=== PATIENT | female | born 1975 | race Caucasian/White ===

== ENCOUNTER 2018-12-05 16:07 | Observation (INO) ==
--- NOTE | 2018-12-05 16:37 | Emergency Department Note ---
Disposition Clinical Impression: Chronic abdominal pain Anemia Qualifiers: Anemia type: unspecified type Qualified Code(s): D64.9 - Anemia, unspecified Hypothyroidism Qualifiers: Hypothyroidism type: unspecified Qualified Code(s): E03.9 - Hypothyroidism, unspecified Disposition: Admitted As Inpatient Condition: Fair Referrals: Brie Thapa MD [Primary Care Provider] - Time of Disposition: 20:47 General Adult HPI - General Chief complaint: ED Chest Pain Stated complaint: CP since Time Seen by Provider: 12/05/18 16:18 Source: patient - History of Present Illness Pain Scale: 10 - Related Data Home Medications Medication Instructions Recorded Confirmed Aspirin [Lo-Dose Aspirin EC] 81 mg PO DAILY 03/19/16 01/21/18 Atorvastatin Calcium [Lipitor] 80 mg PO HS 03/19/16 01/21/18 Cyclobenzaprine [Flexeril] 10 mg PO TID PRN 03/19/16 01/21/18 Gabapentin [Neurontin] 800 mg PO BID 03/19/16 01/21/18 LORazepam [Ativan] 2 mg PO BID 03/19/16 01/21/18 metFORMIN [Glucophage] 1,000 mg PO BIDWM 03/19/16 01/21/18 Citalopram [CeleXA] 20 mg PO DAILY 01/21/18 01/21/18 Levothyroxine Sodium [Synthroid] 200 mcg PO DAILY 01/21/18 01/21/18 Losartan/Hydrochlorothiazide 1 tab PO DAILY 01/21/18 01/21/18 [Losartan-Hctz 100-25 mg Tab] Previous Rx's Medication Instructions Recorded Lurasidone [Latuda] 40 mg PO DAILY #30 tablet 03/20/16 Naproxen [Naprosyn] 500 mg PO BID #20 tablet 04/07/18 Ondansetron ODT [Zofran ODT] 4 mg SL Q6HR PRN #15 tab.rapdis 04/22/18 Gabapentin [Neurontin] 800 mg PO BID #14 tablet 04/29/18 Polyethylene Glycol 3350 [MiraLAX] 17 gm PO DAILY #7 powd.pack 08/11/18 Allergies Allergy/AdvReac Type Severity Reaction Status Date / Time Penicillins Allergy Swelling Verified 12/05/18 19:47 of Lip/Tongue/Throat Past Medical History - Past Medical History Medical history: Reports: CHF, CVA, diabetes, fibromyalgia, hyperlipidemia, hypertension, renal disease, thyroid disease Surgical history: Reports: cholecystectomy, other (D&C after a stillbirth) Psychiatric history: Reports: anxiety, bipolar, depression, previous psychiatric hospitalization 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 history - Social History Smoking Status: Current every day smoker Smokeless Tobacco Status: No Alcohol use: Reports: occasionally Drug use: Reports: none Physical Exam - General General appearance: alert Course Vital Signs Temperature 98.1 F 12/05/18 16:14 Pulse Rate 120 12/05/18 16:14 Respiratory Rate 20 12/05/18 16:14 Blood Pressure 192/122 12/05/18 16:14 O2 Sat by Pulse Oximetry 96 12/05/18 16:14 Temperature 98.1 F 12/05/18 16:23 Pulse Rate 74 12/05/18 19:49 Respiratory Rate 20 12/05/18 19:49 Blood Pressure 153/95 12/05/18 19:49 O2 Sat by Pulse Oximetry 98 12/05/18 19:53 Oxygen Delivery Oxygen Delivery Room Air Medical Decision Making - Lab Data Result diagrams: 12/05/18 17:15 12/05/18 17:15 Lab Results 12/05/18 12/05/18 12/05/18 Range/Units 16:59 16:59 16:59 WBC (4.3-11.1) K/mcL RBC (3.82-4.97) M/mcL Hgb (11.5-15.4) g/dL Hct (35.3-44.9) % MCV (83.0-100.0) fL MCH (28.0-33.3) pg MCHC (31.6-35.5) g/dL RDW (11.5-14.5) % Plt Count (140-400) K/mcL MPV (9.4-12.4) fL Immature Gran % (0-4) % Seg Neutrophils % % Lymphocytes % % Monocytes % % Eosinophils % % Basophils % % Neutrophils # (1.6-8.9) K/mcL Lymphocytes # (0.6-4.6) K/mcL Monocytes # (0.0-1.3) K/mcL Eosinophils # (0.0-0.6) K/mcL Basophils # (0.0-0.2) K/mcL Sodium (136-145) mEq/L Potassium (3.5-5.1) mEq/L Chloride (98-107) mEq/L Carbon Dioxide (23-29) mEq/L BUN (6-20) mg/dL Creatinine (0.60-1.20) mg/dL Est GFR ( Amer) (> 60) Est GFR (Non-Af Amer) (> 60) BUN/Creatinine Ratio (6-26) Glucose (70-105) mg/dL Calculated Osmolality (280-300) Calcium (8.6-10.3) mg/dL Total Bilirubin (0.3-1.0) mg/dL Direct Bilirubin (0.0-0.2) mg/dL Indirect Bilirubin (0.0-1.2) mg/dL AST (13-39) Units/L ALT (7-52) Units/L Alkaline Phosphatase (34-104) Units/L Troponin I (< 0.04) ng/mL Serum Total Protein (6.4-8.9) g/dL Albumin (3.5-5.7) g/dL Globulin (2.4-3.5) g/dL Albumin/Globulin Ratio (1.1-2.2) Lipase (11-82) Units/L TSH (0.340-5.600) mcIU/mL Urine Color Yellow (Yellow) Urine Clarity Slightly Hazy (Clear) Urine pH 5.5 (5.0-8.0) pH Units Ur Specific [place] 1.011 (1.010-1.025) Urine Protein Negative (Neg-Trace) mg/dL Urine Glucose (UA) Normal (Normal) mg/dL Urine Ketones Negative (Negative) mg/dL Urine Blood Negative (Negative) Urine Nitrite Negative (Negative) Urine Bilirubin Negative (Negative) Urine Urobilinogen Normal (Normal) mg/dL Ur Leukocyte Esterase Negative (Negative) Urine Test Negative (Negative) Stool Occult Blood (Negative) Salicylates (15.0-30.0) mg/dL Urine Opiates Screen Negative (Vphgjg=274) ng/mL Acetaminophen (10-20) mcg/mL Ur Barbiturates Screen Negative (Nwkmso=584) ng/mL Ur Phencyclidine Scrn Negative (Cutoff=25) ng/mL Ur Amphetamines Screen Negative (Rjbwkw=2585) ng/mL U Benzodiazepines Scrn Negative (Sqgpzb=582) ng/mL Urine Cocaine Screen Negative (Cutoff= 300) ng/mL U Marijuana (THC) Screen Negative (Cutoff = 50) ng/mL Ur Drug Screen Interp See Below Ethyl Alcohol (Less than 10) mg/dL 12/05/18 12/05/18 12/05/18 Range/Units 17:15 17:15 17:15 WBC 7.9 (4.3-11.1) K/mcL RBC 3.20 L (3.82-4.97) M/mcL Hgb 9.0 L (11.5-15.4) g/dL Hct 28.9 L (35.3-44.9) % MCV 90.3 (83.0-100.0) fL MCH 28.1 (28.0-33.3) pg MCHC 31.1 L (31.6-35.5) g/dL RDW 16.0 H (11.5-14.5) % Plt Count 325 (140-400) K/mcL MPV 9.6 (9.4-12.4) fL Immature Gran % 0.4 (0-4) % Seg Neutrophils % 55.1 % Lymphocytes % 37.3 % Monocytes % 5.0 % Eosinophils % 1.8 % Basophils % 0.4 % Neutrophils # 4.4 (1.6-8.9) K/mcL Lymphocytes # 3.0 (0.6-4.6) K/mcL Monocytes # 0.4 (0.0-1.3) K/mcL Eosinophils # 0.1 (0.0-0.6) K/mcL Basophils # 0.0 (0.0-0.2) K/mcL Sodium 135 L (136-145) mEq/L Potassium 3.9 (3.5-5.1) mEq/L Chloride 103 (98-107) mEq/L Carbon Dioxide 25 (23-29) mEq/L BUN 12 (6-20) mg/dL Creatinine 0.68 (0.60-1.20) mg/dL Est GFR ( Amer) > 60 (> 60) Est GFR (Non-Af Amer) > 60 (> 60) BUN/Creatinine Ratio 18 (6-26) Glucose 135 H (70-105) mg/dL Calculated Osmolality 282 (280-300) Calcium 9.3 (8.6-10.3) mg/dL Total Bilirubin 0.3 (0.3-1.0) mg/dL Direct Bilirubin 0.0 (0.0-0.2) mg/dL Indirect Bilirubin 0.3 (0.0-1.2) mg/dL AST 11 L (13-39) Units/L ALT 12 (7-52) Units/L Alkaline Phosphatase 53 (34-104) Units/L Troponin I < 0.03 (< 0.04) ng/mL Serum Total Protein 7.2 (6.4-8.9) g/dL Albumin 3.7 (3.5-5.7) g/dL Globulin 3.5 (2.4-3.5) g/dL Albumin/Globulin Ratio 1.1 (1.1-2.2) Lipase 28 (11-82) Units/L TSH 152.170 H (0.340-5.600) mcIU/mL Urine Color (Yellow) Urine Clarity (Clear) Urine pH (5.0-8.0) pH Units Ur Specific [place] (1.010-1.025) Urine Protein (Neg-Trace) mg/dL Urine Glucose (UA) (Normal) mg/dL Urine Ketones (Negative) mg/dL Urine Blood (Negative) Urine Nitrite (Negative) Urine Bilirubin (Negative) Urine Urobilinogen (Normal) mg/dL Ur Leukocyte Esterase (Negative) Urine Test (Negative) Stool Occult Blood (Negative) Salicylates < 2.5 L (15.0-30.0) mg/dL Urine Opiates Screen (Ppauzb=263) ng/mL Acetaminophen < 10 L (10-20) mcg/mL Ur Barbiturates Screen (Wpbkhr=280) ng/mL Ur Phencyclidine Scrn (Cutoff=25) ng/mL Ur Amphetamines Screen (Qwayfg=1019) ng/mL U Benzodiazepines Scrn (Ljjcif=141) ng/mL Urine Cocaine Screen (Cutoff= 300) ng/mL U Marijuana (THC) Screen (Cutoff = 50) ng/mL Ur Drug Screen Interp Ethyl Alcohol < 10 (Less than 10) mg/dL 12/05/18 Range/Units 18:18 WBC (4.3-11.1) K/mcL RBC (3.82-4.97) M/mcL Hgb (11.5-15.4) g/dL Hct (35.3-44.9) % MCV (83.0-100.0) fL MCH (28.0-33.3) pg MCHC (31.6-35.5) g/dL RDW (11.5-14.5) % Plt Count (140-400) K/mcL MPV (9.4-12.4) fL Immature Gran % (0-4) % Seg Neutrophils % % Lymphocytes % % Monocytes % % Eosinophils % % Basophils % % Neutrophils # (1.6-8.9) K/mcL Lymphocytes # (0.6-4.6) K/mcL Monocytes # (0.0-1.3) K/mcL Eosinophils # (0.0-0.6) K/mcL Basophils # (0.0-0.2) K/mcL Sodium (136-145) mEq/L Potassium (3.5-5.1) mEq/L Chloride (98-107) mEq/L Carbon Dioxide (23-29) mEq/L BUN (6-20) mg/dL Creatinine (0.60-1.20) mg/dL Est GFR ( Amer) (> 60) Est GFR (Non-Af Amer) (> 60) BUN/Creatinine Ratio (6-26) Glucose (70-105) mg/dL Calculated Osmolality (280-300) Calcium (8.6-10.3) mg/dL Total Bilirubin (0.3-1.0) mg/dL Direct Bilirubin (0.0-0.2) mg/dL Indirect Bilirubin (0.0-1.2) mg/dL AST (13-39) Units/L ALT (7-52) Units/L Alkaline Phosphatase (34-104) Units/L Troponin I (< 0.04) ng/mL Serum Total Protein (6.4-8.9) g/dL Albumin (3.5-5.7) g/dL Globulin (2.4-3.5) g/dL Albumin/Globulin Ratio (1.1-2.2) Lipase (11-82) Units/L TSH (0.340-5.600) mcIU/mL Urine Color (Yellow) Urine Clarity (Clear) Urine pH (5.0-8.0) pH Units Ur Specific [place] (1.010-1.025) Urine Protein (Neg-Trace) mg/dL Urine Glucose (UA) (Normal) mg/dL Urine Ketones (Negative) mg/dL Urine Blood (Negative) Urine Nitrite (Negative) Urine Bilirubin (Negative) Urine Urobilinogen (Normal) mg/dL Ur Leukocyte Esterase (Negative) Urine Test (Negative) Stool Occult Blood Negative (Negative) Salicylates (15.0-30.0) mg/dL Urine Opiates Screen (Oihiby=046) ng/mL Acetaminophen (10-20) mcg/mL Ur Barbiturates Screen (Kdbznd=120) ng/mL Ur Phencyclidine Scrn (Cutoff=25) ng/mL Ur Amphetamines Screen (Wqpolc=8762) ng/mL U Benzodiazepines Scrn (Uxkfpd=288) ng/mL Urine Cocaine Screen (Cutoff= 300) ng/mL U Marijuana (THC) Screen (Cutoff = 50) ng/mL Ur Drug Screen Interp Ethyl Alcohol (Less than 10) mg/dL Attestation Statement - Attestation Attestation: I examined this patient and my medical decision-making was reviewed with the Resident Physician. I agree with the documented findings, disposition and treatment plan as described except to the extent set forth below. Patient to the ED complaining of chest and upper abdominal pain. History of the same for several months. Patient is having suicidal thoughts secondary to the pain. She is in no distress on exam. Upper abdominal tenderness without guarding. Plan. Medical clearance with cardiac workup. One a evaluation when patient is medically cleared. Patient signed chest pain. TSH is over 100. We will admit for medical management as the patient cannot be medically cleared at this time. [place] slip on chart. Patient accepted to the medicine service. EKG was reviewed with the resident. No acute ischemic changes. Unchanged from her EKG in December 2017.
--- NOTE | 2018-12-05 17:10 | Emergency Department Note ---
Disposition Clinical Impression: Chronic abdominal pain Anemia Qualifiers: Anemia type: unspecified type Qualified Code(s): D64.9 - Anemia, unspecified Hypothyroidism Qualifiers: Hypothyroidism type: unspecified Qualified Code(s): E03.9 - Hypothyroidism, unspecified Disposition: Admitted As Inpatient Condition: Fair Time of Disposition: 20:00 Chest Pain HPI - General Chief Complaint: ED Chest Pain Stated Complaint: CP since Time Seen by Provider: 12/05/18 16:18 Source: patient Mode of arrival: ambulatory Limitations: no limitations Vital Signs Reviewed: Yes Nursing Notes Reviewed: Yes - History of Present Illness HPI Narrative: 43-year-old female with history of hypertension, fibromyalgia, psychiatric disease, arrives to the emergency department with complaint of roughly 4 months of left-sided chest and upper abdominal discomfort. The patient has had multiple evaluations for this complaint including endoscopy. The patient states that she has been taking medications and is not getting any better. She states it is worse with exertion and worse when she stands up. She feels as though it started on the right side has now migrated to the left side. The patient has no other associated symptoms of her chest pain to include shortness of breath, hemoptysis, or any other associated with with that. Her abdominal pain is sharp in nature as well. She has associated nausea without vomiting. She admits to intermittent episodes of diarrhea. Patient denies any melena or hematochezia associated with it. The patient states that she is now suicidal because she does not know what else to do with this pain. Patient denies any plan. No other acute complaints at this time. Severity scale (1-10): 10 - Related Data Home Medications Medication Instructions Recorded Confirmed Aspirin [Lo-Dose Aspirin EC] 81 mg PO DAILY 03/19/16 01/21/18 Atorvastatin Calcium [Lipitor] 80 mg PO HS 03/19/16 01/21/18 Cyclobenzaprine [Flexeril] 10 mg PO TID PRN 03/19/16 01/21/18 Gabapentin [Neurontin] 800 mg PO BID 03/19/16 01/21/18 LORazepam [Ativan] 2 mg PO BID 03/19/16 01/21/18 metFORMIN [Glucophage] 1,000 mg PO BIDWM 03/19/16 01/21/18 Citalopram [CeleXA] 20 mg PO DAILY 01/21/18 01/21/18 Levothyroxine Sodium [Synthroid] 200 mcg PO DAILY 01/21/18 01/21/18 Losartan/Hydrochlorothiazide 1 tab PO DAILY 01/21/18 01/21/18 [Losartan-Hctz 100-25 mg Tab] Previous Rx's Medication Instructions Recorded Lurasidone [Latuda] 40 mg PO DAILY #30 tablet 03/20/16 Naproxen [Naprosyn] 500 mg PO BID #20 tablet 04/07/18 Ondansetron ODT [Zofran ODT] 4 mg SL Q6HR PRN #15 tab.rapdis 04/22/18 Gabapentin [Neurontin] 800 mg PO BID #14 tablet 04/29/18 Polyethylene Glycol 3350 [MiraLAX] 17 gm PO DAILY #7 powd.pack 08/11/18 Allergies Allergy/AdvReac Type Severity Reaction Status Date / Time Penicillins Allergy Swelling Verified 12/05/18 19:47 of Lip/Tongue/Throat All systems ED: reviewed and negative except as stated. Constitutional: Reports: weakness. Denies: fever, chills ENT ED: Denies: dysphagia Cardiovascular: Reports: chest pain, dyspnea on exertion. Denies: edema, syncope Respiratory: Reports: dyspnea. Denies: cough, sputum production Gastrointestinal: Reports: abdominal pain, nausea. 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 - Social History Smoking Status: Current every day smoker Alcohol use: Reports: occasionally Drug use: Reports: none Physical Exam - General Limitations: no limitations General appearance: alert, in no apparent distress, anxious - Head Head exam: atraumatic, normocephalic, normal inspection - Eye Eye exam: Present: normal appearance, PERRL, EOMI - ENT ENT exam: normal exam, normal oropharynx, mucous membranes moist - Neck Neck exam: Present: normal inspection, full ROM, trachea midline - Chest Chest inspection: Present: normal inspection, symmetric chest wall rise - Respiratory Respiratory exam: Present: normal lung sounds bilaterally. Absent: respiratory distress - Cardiovascular Cardiovascular exam: Present: normal rhythm, tachycardia - Abdominal Exam Abdominal exam: Present: soft, tenderness (LUQ). Absent: Non-Tender, distention, guarding, rebound, rigidity, psoas sign, Beck's sign, tenderness at McBurney's Point - Extremities Exam Extremities exam: Present: normal inspection, full ROM, normal capillary refill. Absent: tenderness, pedal edema - Neurological Exam Neurological exam: Present: alert, oriented X3, CN II-XII intact - Skin Skin exam: Present: warm, dry, intact, normal color Course Vital Signs Temperature 98.1 F 12/05/18 16:14 Pulse Rate 120 12/05/18 16:14 Respiratory Rate 20 12/05/18 16:14 Blood Pressure 192/122 12/05/18 16:14 O2 Sat by Pulse Oximetry 96 12/05/18 16:14 Temperature 98.1 F 12/05/18 16:23 Pulse Rate 74 12/05/18 19:49 Respiratory Rate 20 12/05/18 19:49 Blood Pressure 153/95 12/05/18 19:49 O2 Sat by Pulse Oximetry 98 12/05/18 19:53 Oxygen Delivery Oxygen Delivery Room Air Chest Pain - MDM Narrative Medical decision making narrative: Patient's workup in the emergency department demonstrates some chronic anemia with a worsening today. In addition the patient was noted to have an elevated TSH consistent with hypothyroidism. The patient has not been taking her thyroid medication for at least 2 weeks and I feel as though this is the etiology of he r labwork. I do not feel as though we are able to medically clear the patient this time so we will admit the patient to the hospital were then subsequently she can be evaluated for suicidal ideations. In addition a feels that he can workup for chest pain further and go from there. Patient was made aware and agrees to plan. No further questions or concerns noted. Accepted by Dr. Phelps. - Lab Data Lab results reviewed: Yes I reviewed the patient's lab results. Result diagrams: 12/05/18 17:15 12/05/18 17:15 Lab Results 12/05/18 12/05/18 12/05/18 Range/Units 16:59 16:59 16:59 WBC (4.3-11.1) K/mcL RBC (3.82-4.97) M/mcL Hgb (11.5-15.4) g/dL Hct (35.3-44.9) % MCV (83.0-100.0) fL MCH (28.0-33.3) pg MCHC (31.6-35.5) g/dL RDW (11.5-14.5) % Plt Count (140-400) K/mcL MPV (9.4-12.4) fL Immature Gran % (0-4) % Seg Neutrophils % % Lymphocytes % % Monocytes % % Eosinophils % % Basophils % % Neutrophils # (1.6-8.9) K/mcL Lymphocytes # (0.6-4.6) K/mcL Monocytes # (0.0-1.3) K/mcL Eosinophils # (0.0-0.6) K/mcL Basophils # (0.0-0.2) K/mcL Sodium (136-145) mEq/L Potassium (3.5-5.1) mEq/L Chloride (98-107) mEq/L Carbon Dioxide (23-29) mEq/L BUN (6-20) mg/dL Creatinine (0.60-1.20) mg/dL Est GFR ( Amer) (> 60) Est GFR (Non-Af Amer) (> 60) BUN/Creatinine Ratio (6-26) Glucose (70-105) mg/dL Calculated Osmolality (280-300) Calcium (8.6-10.3) mg/dL Total Bilirubin (0.3-1.0) mg/dL Direct Bilirubin (0.0-0.2) mg/dL Indirect Bilirubin (0.0-1.2) mg/dL AST (13-39) Units/L ALT (7-52) Units/L Alkaline Phosphatase (34-104) Units/L Troponin I (< 0.04) ng/mL Serum Total Protein (6.4-8.9) g/dL Albumin (3.5-5.7) g/dL Globulin (2.4-3.5) g/dL Albumin/Globulin Ratio (1.1-2.2) Lipase (11-82) Units/L TSH (0.340-5.600) mcIU/mL Urine Color Yellow (Yellow) Urine Clarity Slightly Hazy (Clear) Urine pH 5.5 (5.0-8.0) pH Units Ur Specific [place] 1.011 (1.010-1.025) Urine Protein Negative (Neg-Trace) mg/dL Urine Glucose (UA) Normal (Normal) mg/dL Urine Ketones Negative (Negative) mg/dL Urine Blood Negative (Negative) Urine Nitrite Negative (Negative) Urine Bilirubin Negative (Negative) Urine Urobilinogen Normal (Normal) mg/dL Ur Leukocyte Esterase Negative (Negative) Urine Test Negative (Negative) Stool Occult Blood (Negative) Salicylates (15.0-30.0) mg/dL Urine Opiates Screen Negative (Kvrgtz=898) ng/mL Acetaminophen (10-20) mcg/mL Ur Barbiturates Screen Negative (Prbbki=783) ng/mL Ur Phencyclidine Scrn Negative (Cutoff=25) ng/mL Ur Amphetamines Screen Negative (Rdagys=5215) ng/mL U Benzodiazepines Scrn Negative (Iofprk=743) ng/mL Urine Cocaine Screen Negative (Cutoff= 300) ng/mL U Marijuana (THC) Screen Negative (Cutoff = 50) ng/mL Ur Drug Screen Interp See Below Ethyl Alcohol (Less than 10) mg/dL 12/05/18 12/05/18 12/05/18 Range/Units 17:15 17:15 17:15 WBC 7.9 (4.3-11.1) K/mcL RBC 3.20 L (3.82-4.97) M/mcL Hgb 9.0 L (11.5-15.4) g/dL Hct 28.9 L (35.3-44.9) % MCV 90.3 (83.0-100.0) fL MCH 28.1 (28.0-33.3) pg MCHC 31.1 L (31.6-35.5) g/dL RDW 16.0 H (11.5-14.5) % Plt Count 325 (140-400) K/mcL MPV 9.6 (9.4-12.4) fL Immature Gran % 0.4 (0-4) % Seg Neutrophils % 55.1 % Lymphocytes % 37.3 % Monocytes % 5.0 % Eosinophils % 1.8 % Basophils % 0.4 % Neutrophils # 4.4 (1.6-8.9) K/mcL Lymphocytes # 3.0 (0.6-4.6) K/mcL Monocytes # 0.4 (0.0-1.3) K/mcL Eosinophils # 0.1 (0.0-0.6) K/mcL Basophils # 0.0 (0.0-0.2) K/mcL Sodium 135 L (136-145) mEq/L Potassium 3.9 (3.5-5.1) mEq/L Chloride 103 (98-107) mEq/L Carbon Dioxide 25 (23-29) mEq/L BUN 12 (6-20) mg/dL Creatinine 0.68 (0.60-1.20) mg/dL Est GFR ( Amer) > 60 (> 60) Est GFR (Non-Af Amer) > 60 (> 60) BUN/Creatinine Ratio 18 (6-26) Glucose 135 H (70-105) mg/dL Calculated Osmolality 282 (280-300) Calcium 9.3 (8.6-10.3) mg/dL Total Bilirubin 0.3 (0.3-1.0) mg/dL Direct Bilirubin 0.0 (0.0-0.2) mg/dL Indirect Bilirubin 0.3 (0.0-1.2) mg/dL AST 11 L (13-39) Units/L ALT 12 (7-52) Units/L Alkaline Phosphatase 53 (34-104) Units/L Troponin I < 0.03 (< 0.04) ng/mL Serum Total Protein 7.2 (6.4-8.9) g/dL Albumin 3.7 (3.5-5.7) g/dL Globulin 3.5 (2.4-3.5) g/dL Albumin/Globulin Ratio 1.1 (1.1-2.2) Lipase 28 (11-82) Units/L TSH 152.170 H (0.340-5.600) mcIU/mL Urine Color (Yellow) Urine Clarity (Clear) Urine pH (5.0-8.0) pH Units Ur Specific [place] (1.010-1.025) Urine Protein (Neg-Trace) mg/dL Urine Glucose (UA) (Normal) mg/dL Urine Ketones (Negative) mg/dL Urine Blood (Negative) Urine Nitrite (Negative) Urine Bilirubin (Negative) Urine Urobilinogen (Normal) mg/dL Ur Leukocyte Esterase (Negative) Urine Test (Negative) Stool Occult Blood (Negative) Salicylates < 2.5 L (15.0-30.0) mg/dL Urine Opiates Screen (Qcplic=436) ng/mL Acetaminophen < 10 L (10-20) mcg/mL Ur Barbiturates Screen (Raowtk=197) ng/mL Ur Phencyclidine Scrn (Cutoff=25) ng/mL Ur Amphetamines Screen (Nhswgo=6176) ng/mL U Benzodiazepines Scrn (Dsfjbq=617) ng/mL Urine Cocaine Screen (Cutoff= 300) ng/mL U Marijuana (THC) Screen (Cutoff = 50) ng/mL Ur Drug Screen Interp Ethyl Alcohol < 10 (Less than 10) mg/dL 12/05/18 Range/Units 18:18 WBC (4.3-11.1) K/mcL RBC (3.82-4.97) M/mcL Hgb (11.5-15.4) g/dL Hct (35.3-44.9) % MCV (83.0-100.0) fL MCH (28.0-33.3) pg MCHC (31.6-35.5) g/dL RDW (11.5-14.5) % Plt Count (140-400) K/mcL MPV (9.4-12.4) fL Immature Gran % (0-4) % Seg Neutrophils % % Lymphocytes % % Monocytes % % Eosinophils % % Basophils % % Neutrophils # (1.6-8.9) K/mcL Lymphocytes # (0.6-4.6) K/mcL Monocytes # (0.0-1.3) K/mcL Eosinophils # (0.0-0.6) K/mcL Basophils # (0.0-0.2) K/mcL Sodium (136-145) mEq/L Potassium (3.5-5.1) mEq/L Chloride (98-107) mEq/L Carbon Dioxide (23-29) mEq/L BUN (6-20) mg/dL Creatinine (0.60-1.20) mg/dL Est GFR ( Amer) (> 60) Est GFR (Non-Af Amer) (> 60) BUN/Creatinine Ratio (6-26) Glucose (70-105) mg/dL Calculated Osmolality (280-300) Calcium (8.6-10.3) mg/dL Total Bilirubin (0.3-1.0) mg/dL Direct Bilirubin (0.0-0.2) mg/dL Indirect Bilirubin (0.0-1.2) mg/dL AST (13-39) Units/L ALT (7-52) Units/L Alkaline Phosphatase (34-104) Units/L Troponin I (< 0.04) ng/mL Serum Total Protein (6.4-8.9) g/dL Albumin (3.5-5.7) g/dL Globulin (2.4-3.5) g/dL Albumin/Globulin Ratio (1.1-2.2) Lipase (11-82) Units/L TSH (0.340-5.600) mcIU/mL Urine Color (Yellow) Urine Clarity (Clear) Urine pH (5.0-8.0) pH Units Ur Specific [place] (1.010-1.025) Urine Protein (Neg-Trace) mg/dL Urine Glucose (UA) (Normal) mg/dL Urine Ketones (Negative) mg/dL Urine Blood (Negative) Urine Nitrite (Negative) Urine Bilirubin (Negative) Urine Urobilinogen (Normal) mg/dL Ur Leukocyte Esterase (Negative) Urine Test (Negative) Stool Occult Blood Negative (Negative) Salicylates (15.0-30.0) mg/dL Urine Opiates Screen (Wfpbbg=681) ng/mL Acetaminophen (10-20) mcg/mL Ur Barbiturates Screen (Enhjdb=751) ng/mL Ur Phencyclidine Scrn (Cutoff=25) ng/mL Ur Amphetamines Screen (Swqrid=1502) ng/mL U Benzodiazepines Scrn (Kcnfjl=308) ng/mL Urine Cocaine Screen (Cutoff= 300) ng/mL U Marijuana (THC) Screen (Cutoff = 50) ng/mL Ur Drug Screen Interp Ethyl Alcohol (Less than 10) mg/dL - Radiology Data Radiology results reviewed: Yes I reviewed the patient's radiology results. Chest X-Ray 12/05/18 16:32 IMPRESSION: No acute cardiopulmonary disease or significant interval change from prior study 04/07/2018 D/ / Alexei Luo / Alexei Luo Interpreting Provider: Alexei Luo Abdomen/Pelvis CT 12/05/18 16:56 IMPRESSION: Constipation. D/ / Alexei Hare MD / Alexei Hare MD Interpreting Provider: Alexei Hare MD - EKG Data EKG attestation: Yes I reviewed and interpreted this EKG. EKG results narrative: Heart rate 94 beats for minute. Normal sinus rhythm. No ST elevation or ST depression noted. No acute changes noted. Critical Care Time Critical Care Time: No
[2018-12-05 17:14] LABS: Bilirubin,Urine Negative (Negative); Blood,Urine Negative (Negative); Color,Urine Yellow (Yellow); Glucose,Urine (UA) Normal (Normal); Ketones,Urine Negative (Negative); Leukocyte Esterase,Urine Negative (Negative); Nitrite,Urine Negative (Negative); PH,Urine 5.5 pH Units (5.0-8.0); Protein,Urine Negative (Neg-Trace); Specific Gravity,Urine 1.011 (1.010-1.025); Urobilinogen,Urine Normal (Normal)
[2018-12-05 17:20] LABS: Clarity,Urine Slightly Hazy (Clear)
[2018-12-05 17:28] LABS: Amphetamine Screen,Urine Negative ng/mL (Cutoff=1000); Barbiturate Screen,Urine Negative ng/mL (Cutoff=200); Benzodiazepines Screen,Urine Negative ng/mL (Cutoff=200); Cannabinoid Screen,Urine Negative ng/mL (Cutoff = 50); Cocaine Screen,Urine Negative ng/mL (Cutoff= 300); Opiate Screen,Urine Negative ng/mL (Cutoff=300); Phencyclidine Screen,Urine Negative ng/mL (Cutoff=25)
[2018-12-05 17:35] LABS: Basophils % 0.4 %; Eosinophils # 0.1 K/mcL (0.0-0.6); Eosinophils % 1.8 %; Hematocrit 28.9 % (35.3-44.9); Immature Granulocytes % 0.4 % (0-4); Lymphocytes % 37.3 %; Mean Corpuscular HGB Conc 31.1 g/dL (31.6-35.5); Mean Corpuscular Hemoglobin 28.1 pg (28.0-33.3); Mean Corpuscular Volume 90.3 fL (83.0-100.0); Mean Platelet Volume 9.6 fL (9.4-12.4); Monocytes # 0.4 K/mcL (0.0-1.3); Neutrophils # 4.4 K/mcL (1.6-8.9); Platelet Count 325 K/mcL (140-400); Segmented Neutrophils % 55.1 %; White Blood Count 7.9 K/mcL (4.3-11.1)
[2018-12-05 17:54] LABS: Acetaminophen < 10 mcg/mL (10-20); Blood Urea Nitrogen 12 mg/dL (6-20); Calcium 9.3 mg/dL (8.6-10.3); Carbon Dioxide 25 mEq/L (23-29); Chloride 103 mEq/L (98-107); Ethanol < 10 mg/dL (Less than 10); Glucose 135 mg/dL (70-105); Osmolality,Calculated 282 (280-300); Potassium 3.9 mEq/L (3.5-5.1); Salicylate < 2.5 mg/dL (15.0-30.0); Sodium 135 mEq/L (136-145); Troponin I < 0.03 ng/mL (< 0.04)
[2018-12-05 18:02] LABS: Alanine Aminotransferase 12 Units/L (7-52); Albumin 3.7 g/dL (3.5-5.7); Albumin/Globulin Ratio 1.1 (1.1-2.2); Alkaline Phosphatase 53 Units/L (34-104); Aspartate Amino Transferase 11 Units/L (13-39); Bilirubin,Indirect 0.3 mg/dL (0.0-1.2); Bilirubin,Total 0.3 mg/dL (0.3-1.0); Globulin 3.5 g/dL (2.4-3.5); Lipase 28 Units/L (11-82); Total Protein 7.2 g/dL (6.4-8.9)
[2018-12-05 18:10] LABS: BUN/Creatinine Ratio 18 (6-26); eGFR For African Americans > 60 (> 60); eGFR For Non-African Americans > 60 (> 60)
[2018-12-05] MEDS ORDERED: Ketorolac 15 MG/ML VIAL IVP ONE (18:17)
--- NOTE | 2018-12-05 20:08 | Internal Med History&Physical ---
<Marshal Schmitz S - Last Filed: 12/05/18 20:56> Date of Encounter: 12/05/18 Time of Encounter: 20:56 Internal Medicine - H&P: HPI Chief complaint: abdominal pain Admitted From: Home Plans for Post Hospital Care: Home History of present illness: Ms. Bartlett is a 43 year old female with PMH of CHF, CVA, diabetes, fibromyalgia, hyperlipidemia, hypertension, renal disease, and thyroid disease. She is presenting to the ER with the chief complaint of abdominal pain. It has been going on since august and is in her epigastric area, LUQ and RUQ region. She states that nothing makes or better or worse, but does request pain meds. She has had evaluation at outside hospital and had an EGD, she states it was negative. She states that it hurts more when she moves, breaths, eats, or gets tired. She does also have chest pain. She states her pain radiates into her back and goes down her sides. She also has nausea and vomiting. She denies hemoptysis or hemetemesis. Does state that she has melena and hematochezia. She reports dark stools, blood in her stools and blood in the toilet bowl. She also feels suicidal because she is in so much pain. Note that she did report to the ED resident that she had no blood in stool but does report blood. In the ER she was found to have a hemoglobin of 9.0 but had a negative rectal exam. FOBT negative. CT of the abd/pelvis showed constipation. Labs revealed a hemoglobin of 9 and a TSH of 152. She will be admitted for further evaluation. Past Med Surg Social Fam HX - Past Medical History Medical history: CHF, CVA, diabetes, fibromyalgia, hyperlipidemia, hypertension, renal disease, thyroid disease Additional medical history: hypothyroidism. no deficits from previous CVA Psychiatric history: anxiety, bipolar, depression, previous psychiatric hospitalization - Past Surgical History Surgical History: cholecystectomy, other (D&C after a stillbirth) Additional surgical history: D & C - Social History Smoking Status: Current every day smoker Smokeless Tobacco Status: No Alcohol use: occasionally Drug use: none - Family History Mother Hx Family Endocrine Disorder: Yes (DM) Father Hx Family Cardiac Disorders: Yes (CHF) Hx Family Endocrine Disorder: Yes (DM) Internal Medicine - H&P: Meds Aspirin [Lo-Dose Aspirin EC] 81 mg PO DAILY 03/19/16 [History] Atorvastatin Calcium [Lipitor] 80 mg PO HS 03/19/16 [History] Cyclobenzaprine [Flexeril] 10 mg PO TID PRN 03/19/16 [History] Gabapentin [Neurontin] 800 mg PO BID 03/19/16 [History] LORazepam [Ativan] 2 mg PO BID 03/19/16 [History] metFORMIN [Glucophage] 1,000 mg PO BIDWM 03/19/16 [History] Lurasidone [Latuda] 40 mg PO DAILY #30 tablet 03/20/16 [Rx] Citalopram [CeleXA] 20 mg PO DAILY 01/21/18 [History] Levothyroxine Sodium [Synthroid] 200 mcg PO DAILY 01/21/18 [History] Losartan/Hydrochlorothiazide [Losartan-Hctz 100-25 mg Tab] 1 tab PO DAILY 01/21/18 [History] Naproxen [Naprosyn] 500 mg PO BID #20 tablet 04/07/18 [Rx] Ondansetron ODT [Zofran ODT] 4 mg SL Q6HR PRN #15 tab.rapdis 04/22/18 [Rx] Gabapentin [Neurontin] 800 mg PO BID #14 tablet 04/29/18 [Rx] Polyethylene Glycol 3350 [MiraLAX] 17 gm PO DAILY #7 powd.pack 08/11/18 [Rx] Allergy/AdvReac Type Severity Reaction Status Date / Time Penicillins Allergy Swelling Verified 12/05/18 19:47 of Lip/Tongue/Throat All Systems PM: A 10-system review of systems was performed and is negative for pertinent findings except as documented above in the HPI. - Constitutional Constitutional: weight loss, no chills, no fever(s) - EENT Eyes: no blurry vision, no change in vision Ears: no tinnitus Nose, mouth and throat: no bleeding gums, no dry mouth, no epistaxis - Cardiovascular Cardiovascular ROS IM: chest pain, no dyspnea, no dyspnea on exertion - Respiratory Respiratory: no cough, no dyspnea, no dyspnea on exertion - Gastrointestinal Gastrointestinal: abdominal pain, constipation, heartburn, melena, nausea, vomiting, no diarrhea, no hematemesis, no hematochezia - Genitourinary Genitourinary: no dysuria, no hematuria - Musculoskeletal Musculoskeletal ROS IM: back pain, no numbness, no tingling - Integumentary Integumentary IM: no pruritus, no unusual bruising - Neurological Neurological ROS: restless legs, weakness, no numbness, no tingling - Psychiatric Psychiatric: anxiety, depression - Endocrine Endocrine IM: cold intolerance, fatigue, no heat intolerance - Hematologic/Lymphatic Hematologic/Lymphatic: no easy bleeding, no easy bruising - Constitutional Vitals: Temp Pulse Resp BP Pulse Ox 98.1 F 74 20 153/95 98 12/05/18 16:23 12/05/18 19:49 12/05/18 19:49 12/05/18 19:49 12/05/18 19:53 Exam: general - aox3, pleasant, cooperative heent - ncat, mmm, no scleral icterus neck - no jvd, suplpe cardio - rrr, s1s2 cta no mrg lungs - ctab, no wheeze/rhonchi/rales, not in acute respiratory distress abd - TTP in the RUQ > LUQ, no rebound; there is voluntary guarding, no peritoneal signs extremities - no significant peripheral edema, nontender extremities, strength 5/5, moves all extremities equally neuro - no fnd, sensation intact skin - good capillary refill and skin turgor; warm,dry,intact psych - appropriate mood/affect Internal Med - H&P Results - Labs CBC & Chem 7: 12/05/18 17:15 12/05/18 17:15 Labs: Short CBC 12/05/18 Range/Units 17:15 WBC 7.9 (4.3-11.1) K/mcL Hgb 9.0 L (11.5-15.4) g/dL Hct 28.9 L (35.3-44.9) % Plt Count 325 (140-400) K/mcL Neutrophils # 4.4 (1.6-8.9) K/mcL BMP 12/05/18 17:15 Sodium 135 L Potassium 3.9 Chloride 103 Carbon Dioxide 25 BUN 12 Creatinine 0.68 Glucose 135 H Calcium 9.3 Cardiac Enzymes 12/05/18 Range/Units 17:15 Troponin I < 0.03 (< 0.04) ng/mL Liver Function 12/05/18 Range/Units 17:15 Total Bilirubin 0.3 (0.3-1.0) mg/dL Direct Bilirubin 0.0 (0.0-0.2) mg/dL AST 11 L (13-39) Units/L ALT 12 (7-52) Units/L Alkaline Phosphatase 53 (34-104) Units/L Albumin 3.7 (3.5-5.7) g/dL Urine 12/05/18 Range/Units 16:59 Urine Color Yellow (Yellow) Urine Clarity Slightly Hazy (Clear) Urine pH 5.5 (5.0-8.0) pH Units Ur Specific [place] 1.011 (1.010-1.025) Urine Protein Negative (Neg-Trace) mg/dL Urine Glucose (UA) Normal (Normal) mg/dL - Impressions ITS Impressions Chest X-Ray 12/05/18 16:32 IMPRESSION: No acute cardiopulmonary disease or significant interval change from prior study 04/07/2018 D/ / Alexei Luo / Alexei Luo Interpreting Provider: Alexei uLo Abdomen/Pelvis CT 12/05/18 16:56 IMPRESSION: Constipation. D/ / Alexei Hare MD / Alexei Hare MD Interpreting Provider: Alexei Hare MD - Assessment and Plan (1) Abdominal pain Current Visit: Yes Status: Acute Assessment and plan: Pt presents with 4 mo hx of abdominal pain localized to the epigastric region, RUQ, LUQ - no report of worsening with food, no particular trigger Likely having abdominal pain 2/2 constipation from hypothyroidism vs psychosomatic component CT abdomen does show constipation, no acute process Negative rectal exam Does report ~25-30lb unintentional weight loss Has had EGD in the past, no records available here Plan: - telemetry montitoring - start colace BID - toradol as needed for pain control - FEN: cardiac deit - dvt prophylaxis: scd - dispo: psych eval 2/2 SI, would benefit from outpatient GI workup, tx of hypothyroidism Qualifiers: Abdominal location: generalized Qualified Code(s): R10.84 - Generalized abdominal pain (2) Hypothyroidism Current Visit: Yes Status: Acute Assessment and plan: Pt reports not having access to her home rx, med reconciliation lists 200mcg PO daily of synthroid. TSH 152 on admission Does not appear to be in acute crisis, VSS Does report constipation and cold intolerance Plan: - T3 and T4 studies pending - start synthroid 75 mcg daily lower dosing 2/2 to hx of cardiac dz, did discuss with Armaan Moses Qualifiers: Hypothyroidism type: unspecified Qualified Code(s): E03.9 - Hypothyroidism, unspecified (3) Anemia Current Visit: Yes Status: Acute Assessment and plan: Hemoglobin 9.0 with normal MCV, negative rectal exam. FOBT (-). Previous baseline from 2 mos ago 11.3 Pt does report seeing blood in stool. Plan to trend H&H q6hr. Iron profile pending. If needed, will type and screen to transfuse. No active bleeding at this time. Likely will benefit from outpatient GI workup. Qualifiers: Anemia type: unspecified type Qualified Code(s): D64.9 - Anemia, unspecified (4) Suicidal ideation Current Visit: Yes Status: Acute Assessment and plan: 1A consulted. Will need psych clearance. (5) Depression Current Visit: No Status: Chronic Assessment and plan: Resume home rx when reconciled. 1A consulted 2/2 SI. Qualifiers: Depression Type: unspecified Qualified Code(s): F32.9 - Major depressive disorder, single episode, unspecified (6) Diabetes Current Visit: No Status: Chronic Assessment and plan: T2DM on metformin. Hold home rx. LDSS. Accuchecks. Qualifiers: Diabetes mellitus type: type 2 Diabetes mellitus roasterman insulin use: without usp use Diabetes mellitus complication status: without complication Qualified Code(s): E11.9 - Type 2 diabetes mellitus without complications (7) Obesity Current Visit: No Status: Chronic Assessment and plan: BMI 37.6, chronic. Qualifiers: Obesity type: due to excess calories Obesity classification: adult class 2 (BMI 35 - 39.9) Serious obesity comorbidity presence: without serious comorbidity Body mass index: BMI 37.0-37.9 Qualified Code(s): E66.09 - Other obesity due to excess calories; Z68.37 - Body mass index (BMI) 37.0-37.9, adult (8) Hypertension Current Visit: No Status: Chronic Assessment and plan: con't home rx when reconciled. chronic. Qualifiers: Hypertension type: essential hypertension Qualified Code(s): I10 - Essential (primary) hypertension (9) DVT prophylaxis Current Visit: Yes Status: Acute Assessment and plan: scd (10) Tobacco abuse Current Visit: No Status: Chronic Assessment and plan: smokes 1/2 ppd. chronic, counseled. - Time Spent With Patient Total time spent is greater than 50% in coordination of care (as documented) at patient's floor/unit and/or counseling patient: 25 - 35 minutes <Gregory Sanches - Last Filed: 12/05/18 21:28> Date of Encounter: 12/05/18 Internal Medicine - H&P: HPI History of present illness: Ms. Bartlett is a 43 year old female All Systems PM: A 10-system review of systems was performed and is negative for pertinent findings except as documented above in the HPI. - Constitutional Vitals: Temp Pulse Resp BP Pulse Ox 98.1 F 74 20 153/95 98 12/05/18 16:23 12/05/18 19:49 12/05/18 19:49 12/05/18 19:49 12/05/18 19:53 Internal Med - H&P Results - Labs CBC & Chem 7: 12/05/18 17:15 12/05/18 17:15 Labs: Short CBC 12/05/18 Range/Units 17:15 WBC 7.9 (4.3-11.1) K/mcL Hgb 9.0 L (11.5-15.4) g/dL Hct 28.9 L (35.3-44.9) % Plt Count 325 (140-400) K/mcL Neutrophils # 4.4 (1.6-8.9) K/mcL BMP 12/05/18 17:15 Sodium 135 L Potassium 3.9 Chloride 103 Carbon Dioxide 25 BUN 12 Creatinine 0.68 Glucose 135 H Calcium 9.3 Cardiac Enzymes 12/05/18 Range/Units 17:15 Troponin I < 0.03 (< 0.04) ng/mL Liver Function 12/05/18 Range/Units 17:15 Total Bilirubin 0.3 (0.3-1.0) mg/dL Direct Bilirubin 0.0 (0.0-0.2) mg/dL AST 11 L (13-39) Units/L ALT 12 (7-52) Units/L Alkaline Phosphatase 53 (34-104) Units/L Albumin 3.7 (3.5-5.7) g/dL Urine 12/05/18 Range/Units 16:59 Urine Color Yellow (Yellow) Urine Clarity Slightly Hazy (Clear) Urine pH 5.5 (5.0-8.0) pH Units Ur Specific [place] 1.011 (1.010-1.025) Urine Protein Negative (Neg-Trace) mg/dL Urine Glucose (UA) Normal (Normal) mg/dL - Impressions ITS Impressions Chest X-Ray 12/05/18 16:32 IMPRESSION: No acute cardiopulmonary disease or significant interval change from prior study 04/07/2018 D/ / Alexei Luo / Alexei Luo Interpreting Provider: Alexei Luo Abdomen/Pelvis CT 12/05/18 16:56 IMPRESSION: Constipation. D/ / Alexei Hare MD / Alexei Hare MD Interpreting Provider: Alexei Hare MD - Time Spent With Patient Total time spent is greater than 50% in coordination of care (as documented) at patient's floor/unit and/or counseling patient: - Attending Attestation I performed a history and physical exam of the patient and discussed management with the resident. I reviewed the resident's note and agree with the documented findings and plan of care. 43 year old woman with multiple comorbidities presenting with a plethora of complaints. She will need evaluation for blood loss anemia, suicidal ideation and a biochemically hypothyroid state. She will also require psych evaluation for suicidal ideation. CONCETTA ROLDAN.
[2018-12-05] MEDS ORDERED: Naloxone 0.4 MG/ML INJ IVP PRN (20:51)
[2018-12-05] MEDS ORDERED: Dextrose Gel 15 GM/37.5 ML TUBE PO PRN ×2 (20:57)
[2018-12-05] MEDS ORDERED: *HR* Dextrose 50 % in Water (Syg) 50 ML SYRINGE IVP PRN (20:57)
[2018-12-05] MEDS ORDERED: D5% in Water 1,000 ML IVC PRN (20:57)
[2018-12-05] MEDS ORDERED: *HR* Heparin 5,000 UNIT/ML VIAL SQ SCH (22:00)
[2018-12-05] MEDS: Insulin LISPRO 300 UNITS/3 ML VIAL SQ SCH ×2 (22:00→22:17)
[2018-12-05] MEDS ORDERED: *HR* Metoprolol 5 MG/5 ML VIAL IVP PRN (22:21)
[2018-12-05] MEDS ORDERED: Ketorolac 15 MG/ML VIAL IM PRN (22:25)
[2018-12-05 22:37] LABS: % Iron Saturation 3 % (15-50); Iron 15 mcg/dL (50-170); Transferrin 310 mg/dL (203-362)
[2018-12-05 22:57] LABS: Triiodothyronine (T3) Free 2.22 pg/mL (2.50-3.90)
[2018-12-05 23:03] LABS: Triiodothyronine (T3) Total 0.59 ng/mL (0.87-1.78)
[2018-12-05] MEDS: Nicotine 14 MG PATCH.TD24 TD SCH (23:05)
[2018-12-05] MEDS: Ketorolac 15 MG/ML VIAL IVP PRN (23:27)
[2018-12-06] MEDS: *HR* LORazepam 1 MG TABLET PO SCH ×3 (01:31→21:04)
[2018-12-06] MEDS: Gabapentin 400 MG CAPSULE PO SCH ×3 (01:31→21:04)
[2018-12-06 01:57] LABS: Hematocrit 28.9 % (35.3-44.9)
[2018-12-06] MEDS: Ketorolac 15 MG/ML VIAL IVP PRN (06:39)
[2018-12-06 07:41] LABS: Hematocrit 28.5 % (35.3-44.9); Hematocrit 29.1 % (35.3-44.9); Hemoglobin 8.8 g/dL (11.5-15.4); Hemoglobin 8.9 g/dL (11.5-15.4); Mean Corpuscular HGB Conc 30.9 g/dL (31.6-35.5); Mean Corpuscular Volume 90.8 fL (83.0-100.0); Mean Platelet Volume 9.8 fL (9.4-12.4); Platelet Count 317 K/mcL (140-400); Red Blood Count 3.14 M/mcL (3.82-4.97); Red Cell Distribution Width 16.3 % (11.5-14.5); White Blood Count 6.7 K/mcL (4.3-11.1)
[2018-12-06 07:55] LABS: BUN/Creatinine Ratio 16 (6-26); Blood Urea Nitrogen 13 mg/dL (6-20); Calcium 8.8 mg/dL (8.6-10.3); Carbon Dioxide 25 mEq/L (23-29); Chloride 104 mEq/L (98-107); Glucose 124 mg/dL (70-105); Osmolality,Calculated 286 (280-300); Potassium 3.9 mEq/L (3.5-5.1); Sodium 137 mEq/L (136-145); eGFR For African Americans > 60 (> 60); eGFR For Non-African Americans > 60 (> 60)
[2018-12-06] MEDS: Insulin LISPRO 300 UNITS/3 ML VIAL SQ SCH ×4 (08:58→21:05)
[2018-12-06] MEDS ORDERED: Milk and Molasses Enema 200 ML RC ONE (12:58)
[2018-12-06] MEDS ORDERED: Lactulose Oral Soln 20 GM/30 ML UDC PO PRN (12:58)
--- NOTE | 2018-12-06 13:09 | Internal Med Progress Note ---
Hospitalist Progress Note - Encounter Date of Encounter: 12/06/18 Time of Encounter: 10:45 - Subjective Interval History: Ms. Bartlett is a 43 year old female with PMH of CHF, CVA, diabetes, fibromyalgia, hyperlipidemia, hypertension, renal disease, and hypothyroidism pt presented to ER with the chief complaint of abdominal pain. It has been going on since august and is in her epigastric area, LUQ and RUQ region. She states that nothing makes or better or worse, but does request pain meds. She has had evaluation at outside hospital and had an EGD, she states it was negative. She did c/o nausea and vomiting. She denied hemoptysis or hemetemesis. She reports dark stools, blood in her stools and blood in the toilet bowl. She also feels suicidal because she is in so much pain. In the ER she was found to have a hemoglobin of 9.0 but had a negative rectal exam. FOBT negative. CT of the abd/pelvis showed constipation. Her TSh was severely elevated @ 152 and she did c/o depression lately. She did mentioned about suicidal ideation in the ER. She was admitted in the hospital and placed on gun fertilizer. She was started on oral levothyroxine. Started on stool softness. Patient stated she had watery BM x 1. Able to tolerate PO intake ok. She denied any more suicidal ideation. - Exam Vitals: Temp Pulse Resp BP Pulse Ox 98.1 F 88 16 143/96 97 12/06/18 10:11 12/06/18 10:11 12/06/18 10:11 12/06/18 10:11 12/06/18 10:11 Exam: Gen: Alert, awake, Oriented to time,place and person Chest: Diminished breath sounds B/L, No wheezing, No crackles, No rales Heart: S1S2+ RRR No murmurs Abd: Soft, NT, BS +, No organomegaly Ext: No edema, pulses are palpable, No calf tenderness Neuro : No acute focal neuro deficits noticed Psych: Depressed.. No suicidal ideation Skin: No rash. - Assessment and Plan (1) Constipation Current Visit: Yes Status: Acute Assessment and Plan: Cont stool softeners ordered enema X 1 Also started on Lactulose PRN avoid narcotics (2) Abdominal pain Current Visit: Yes Status: Acute Assessment and Plan: due to constipation improving started PPI (3) Hypothyroidism Current Visit: Yes Status: Acute Assessment and Plan: Her TSH @ 152 Free T4 < 0.25 she is not in crisis.. Not in coma Due to medication non compliance counseled the pt Started her on Levothyroxine 125mcg need close f/u as an out pt discussed with pt about this (4) Suicidal ideation Current Visit: Yes Status: Acute Assessment and Plan: Due to depression on suicidal precautions Psych consulted.. Appreciate recommendations 1 to 1 sitter (5) Noncompliance with medication regimen Current Visit: No Status: Acute (6) Depression Current Visit: No Status: Chronic (7) Diabetes Current Visit: No Status: Chronic Assessment and Plan: on ADA diet on ISS (8) Hypertension Current Visit: No Status: Chronic Assessment and Plan: stable BP with current regimen (9) Obesity Current Visit: No Status: Chronic Assessment and Plan: Counseled to loose weight (10) Tobacco abuse Current Visit: No Status: Chronic Assessment and Plan: Counseled to quit smoking placed on nicotine patch - Time Spent with Patient Total time spent is greater than 50% in coordination of care (as documented) at patient's floor/unit and/or counseling patient: Internal Medicine: Result - Labs CBC & Chem 7: 12/06/18 07:04 12/06/18 07:04 Labs: Short CBC 12/05/18 12/06/18 12/06/18 Range/Units 17:15 00:42 07:04 WBC 7.9 6.7 (4.3-11.1) K/mcL Hgb 9.0 L 9.0 L 8.8 L (11.5-15.4) g/dL Hct 28.9 L 28.9 L 28.5 L (35.3-44.9) % Plt Count 325 317 (140-400) K/mcL Neutrophils # 4.4 (1.6-8.9) K/mcL 12/06/18 Range/Units 07:04 WBC (4.3-11.1) K/mcL Hgb 8.9 L (11.5-15.4) g/dL Hct 29.1 L (35.3-44.9) % Plt Count (140-400) K/mcL Neutrophils # (1.6-8.9) K/mcL BMP 12/05/18 12/06/18 17:15 07:04 Sodium 135 L 137 Potassium 3.9 3.9 Chloride 103 104 Carbon Dioxide 25 25 BUN 12 13 Creatinine 0.68 0.79 Glucose 135 H 124 H Calcium 9.3 8.8 Cardiac Enzymes 12/05/18 Range/Units 17:15 Troponin I < 0.03 (< 0.04) ng/mL Liver Function 12/05/18 Range/Units 17:15 Total Bilirubin 0.3 (0.3-1.0) mg/dL Direct Bilirubin 0.0 (0.0-0.2) mg/dL AST 11 L (13-39) Units/L ALT 12 (7-52) Units/L Alkaline Phosphatase 53 (34-104) Units/L Albumin 3.7 (3.5-5.7) g/dL Urine 12/05/18 Range/Units 16:59 Urine Color Yellow (Yellow) Urine Clarity Slightly Hazy (Clear) Urine pH 5.5 (5.0-8.0) pH Units Ur Specific [place] 1.011 (1.010-1.025) Urine Protein Negative (Neg-Trace) mg/dL Urine Glucose (UA) Normal (Normal) mg/dL - Impressions Impressions Chest X-Ray 12/05/18 16:32 IMPRESSION: No acute cardiopulmonary disease or significant interval change from prior study 04/07/2018 D/ / Alexei Luo / Alexei Luo Interpreting Provider: Alexei Luo Abdomen/Pelvis CT 12/05/18 16:56 IMPRESSION: Constipation. D/ / Alexei Hare MD / Alexei Hare MD Interpreting Provider: Alexei Hare MD Consult Discharge Plan - Plan Referrals: Brie Thapa MD [Primary Care Provider] - (2) Abdominal pain Qualifiers: Abdominal location: generalized Qualified Code(s): R10.84 - Generalized abdominal pain (3) Hypothyroidism Qualifiers: Hypothyroidism type: acquired Qualified Code(s): E03.9 - Hypothyroidism, unspecified (6) Depression Qualifiers: Depression Type: unspecified Qualified Code(s): F32.9 - Major depressive disorder, single episode, unspecified (7) Diabetes Qualifiers: Diabetes mellitus type: type 2 Diabetes mellitus hair dryer insulin use: w ithout mcc use Diabetes mellitus complication status: without compli cation Qualified Code(s): E11.9 - Type 2 diabetes mellitus without complic ations (8) Hypertension Qualifiers: Hypertension type: essential hypertension Qualified Code(s): I10 - Essential (primary) hypertension (9) Obesity Qualifiers: Obesity type: due to excess calories Obesity classification: adult class 2 (BMI 35 - 39.9) Serious obesity comorbidity presence: without serious comorbidity Body mass index: BMI 37.0-37.9 Qualified Code(s): E66.09 - Other obesity due to excess calories; Z68.37 - Body mass index (BMI) 37.0-37.9, adult
--- NOTE | 2018-12-06 14:43 | Electrocardiograph Report ---
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
--- NOTE | 2018-12-06 16:27 | Consult Note ---
Date of Encounter: 12/06/18 Time of Encounter: 15:45 Assessment & Recommendation (1) Mood disorder with depressive features due to general medical condition Current visit: Yes Status: Acute History of Present Illness Patient: new to practice Requesting Physician: Priscila Morales MD Reason for consult: SI History of present illness: Ms. Bartlett is a 43 year old female who mental health was asked to consult on due to possible suicidal ideation. When I went to introduce myself to the patient ask how she was, she stated "Doc I feel better. I do not feel like I am going to hurt myself". She acknowledges she did make a statement when admitted that she did not want to live feeling like this, physically in pain. She was in a great deal of pain when she came to the hospital and reports having had that pain since August. She was feeling frustrated having this chronic pain in her abdomen. She had been doing light- duty at work and was unable to rest comfortably at home, feeling like she was not being productive. "That's nnot me." She states that since she has been in the hospital, and they are giving her medication for the pain and her severe constipation is resolving, she is feeling much better. She denies being hopeless and helpless. She reports she is still very active, as much as she can be, and likes to do things. She sp[ends a lot of time visiting with her 3 children and traveling. She denies changes in her energy level, except that she could not do things because the pain at times. When she is not in pain, she sleeps fine. She is not going days and days without sleep. She has no problems with gambling or impulsivity. She is not agitated. She denies auditory or visual hallucinations. She denies paranoia. She reports that she does have a history of mental health problems years ago. She said that those issues are resolved with counseling and medication treatment and that she is no longer in need of outpatient mental health. She did have a suicide attempt almost 25 years ago, OD, when her father . But she swore she would never do that again and got help. She talks about being future oriented and wonderful things are happening her life. She states she has a new apartment and has friends in her new apartment that she hangs out with and does things with. She is not isolating. 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 She did have concerns being on light-duty that they might try and fire her, but she has been in contact with them will take copies of her medical records. There is no current history of substance abuse. She states that she is feeling much better, knows how to get outpatient mental health help if she needs it. She assures me she has a great deal to live for and would never hurt herself. Recommendations: patient appears to be at low risk of suicide/self harm. She has access to mental health and is in them medical system and knows how to get mental health treatment if needed. She is currently on a one-to-one sitter which is not necessary at this time. She denies any need for follow-up care mental health. Please contact if is us if there is anything further we can provide the medical team. CC: Priscila Morales MD Past Med Surg Social Fam HX - Past Medical History Medical history: CHF, CVA, diabetes, fibromyalgia, hyperlipidemia, hypertension, renal disease, thyroid disease - Past Psychiatric History Psychiatric history: Reports: prior suicide attempt (24 years ago after her father . OD) Past psychiatric history details: She reports previous mental health treatment, but stable intermediate without any medications or therapy Family psychiatric history: Unknown (Not aware of her biological family's history) Family History of Suicide: Unknown - Past Surgical History Surgical History: cholecystectomy - Social History Smoking Status: Current every day smoker Smokeless Tobacco Status: No Alcohol use: occasionally Drug use: none Occupational status: employed ([employer] for 19 years) Current living situation: Home - Independent Activity Level: Independent ambulation Recent Out of Country Travel Within the Last 8 Weeks: No Exposure or Possible Exposure to Illness During Travel: No - Family History Mother Hx Family Endocrine Disorder: Yes (DM) Father Hx Family Cardiac Disorders: Yes (CHF) Hx Family Endocrine Disorder: Yes (DM) Medications & Allergies Atorvastatin Calcium [Lipitor] 80 mg PO HS 03/19/16 [History] Cyclobenzaprine [Flexeril] 10 mg PO TID PRN 03/19/16 [History] Ondansetron ODT [Zofran ODT] 4 mg SL Q6HR PRN #15 tab.rapdis 04/22/18 [Rx] Gabapentin [Neurontin] 800 mg PO BID #14 tablet 04/29/18 [Rx] Acetaminophen [Extra Strength Non-Aspirin] 500 mg PO Q6HR 12/05/18 [History] Famotidine/Ca Carb/Mag Hydrox [Pepcid Complete Tablet Chew] 1 each PO DAILY 12/05/18 [History] Levothyroxine [Synthroid] 50 mcg PO 0630 12/05/18 [History] Pantoprazole Sodium [Protonix] 40 mg PO DAILY 12/05/18 [History] Sucralfate [Carafate] 1 gm PO Q6HR 12/05/18 [History] Aspirin [Lo-Dose Aspirin EC] 81 mg PO DAILY 12/06/18 [History] Carvedilol [Coreg] 25 mg PO BID 12/06/18 [History] LORazepam [Lorazepam] 2 mg PO BID 12/06/18 [History] Allergy/AdvReac Type Severity Reaction Status Date / Time Penicillins Allergy Swelling Verified 12/05/18 19:47 of Lip/Tongue/Throat lisinopril AdvReac Cough Verified 12/05/18 22:21 Review of Systems Psychiatric: Reports: depression, anxiety, abnormal sleep pattern, suicidal ideation (reported during extreme pain) Psychiatry Exam - Constitutional Vitals: Temp Pulse Resp BP Pulse Ox 97.5 F L 87 16 139/99 97 12/06/18 15:19 12/06/18 15:19 12/06/18 15:19 12/06/18 15:19 12/06/18 10:11 General appearance: age & developmentally appropriate, obese Additional observations: Resting comfortably in her hospital bed without any signs of distress - Psychiatric Patient Orientation: Yes Person, Yes Time, Yes Place, Yes Circumstance Level of alertness: Alert, Follows commands Behavior: calm, cooperative Psychomotor activity: Normal Eye Contact: Maintains Eye Contact Mood Description: Euthymic/stable Affect description: congruent with mood Speech Volume: Normal Speech pattern: normal rate, normal rhythm, normal tone, fluent Language & Vocabulary: consistent with education Thought Process: Intact, Logical, Linear, Goal Oriented Thought Content: Yes Intact Attention Span Ability: Capable of Focused Attention Memory Description: Grossly Intact Patient Reliability: Reliable Historian Fund of knowledge: Yes abstraction ability Intelligence Estimate: Average Judgment: Good Insight: Full Results - Drug Levels and Toxicology Drug Levels and Toxicology: Drug Levels and Toxicity 12/05/18 12/05/18 16:59 17:15 Urine Opiates Screen Negative Acetaminophen < 10 L Ur Barbiturates Screen Negative Ur Phencyclidine Scrn Negative Ur Amphetamines Screen Negative U Benzodiazepines Scrn Negative Urine Cocaine Screen Negative U Marijuana (THC) Screen Negative Ethyl Alcohol < 10 - Labs Labs: Laboratory Last Values WBC 6.7 K/mcL (4.3-11.1) 12/06/18 07:04 RBC 3.14 M/mcL (3.82-4.97) L 12/06/18 07:04 Hgb 8.8 g/dL (11.5-15.4) L 12/06/18 07:04 Hgb 8.9 g/dL (11.5-15.4) L 12/06/18 07:04 Hct 28.5 % (35.3-44.9) L 12/06/18 07:04 Hct 29.1 % (35.3-44.9) L 12/06/18 07:04 MCV 90.8 fL (83.0-100.0) 12/06/18 07:04 MCH 28.0 pg (28.0-33.3) 12/06/18 07:04 MCHC 30.9 g/dL (31.6-35.5) L 12/06/18 07:04 RDW 16.3 % (11.5-14.5) H 12/06/18 07:04 Plt Count 317 K/mcL (140-400) 12/06/18 07:04 MPV 9.8 fL (9.4-12.4) 12/06/18 07:04 Immature Gran % 0.4 % (0-4) 12/05/18 17:15 Seg Neutrophils % 55.1 % 12/05/18 17:15 37.3 % 12/05/18 17:15 5.0 % 12/05/18 17:15 1.8 % 12/05/18 17:15 0.4 % 12/05/18 17:15 4.4 K/mcL (1.6-8.9) 12/05/18 17:15 3.0 K/mcL (0.6-4.6) 12/05/18 17:15 0.4 K/mcL (0.0-1.3) 12/05/18 17:15 0.1 K/mcL (0.0-0.6) 12/05/18 17:15 0.0 K/mcL (0.0-0.2) 12/05/18 17:15 Sodium 137 mEq/L (136-145) 12/06/18 07:04 Potassium 3.9 mEq/L (3.5-5.1) 12/06/18 07:04 Chloride 104 mEq/L (98-107) 12/06/18 07:04 Carbon Dioxide 25 mEq/L (23-29) 12/06/18 07:04 BUN 13 mg/dL (6-20) 12/06/18 07:04 0.79 mg/dL (0.60-1.20) 12/06/18 07:04 Est GFR ( Amer) > 60 (> 60) 12/06/18 07:04 Est GFR (Non-Af Amer) > 60 (> 60) 12/06/18 07:04 16 (6-26) 12/06/18 07:04 Glucose 124 mg/dL (70-105) H 12/06/18 07:04 286 (280-300) 12/06/18 07:04 Calcium 8.8 mg/dL (8.6-10.3) 12/06/18 07:04 Iron 15 mcg/dL (50-170) L 12/05/18 21:47 % Saturation 3 % (15-50) L 12/05/18 21:47 310 mg/dL (203-362) 12/05/18 21:47 0.3 mg/dL (0.3-1.0) 12/05/18 17:15 0.0 mg/dL (0.0-0.2) 12/05/18 17:15 0.3 mg/dL (0.0-1.2) 12/05/18 17:15 AST 11 Units/L (13-39) L 12/05/18 17:15 ALT 12 Units/L (7-52) 12/05/18 17:15 53 Units/L (34-104) 12/05/18 17:15 < 0.03 ng/mL (< 0.04) 12/05/18 17:15 7.2 g/dL (6.4-8.9) 12/05/18 17:15 3.7 g/dL (3.5-5.7) 12/05/18 17:15 3.5 g/dL (2.4-3.5) 12/05/18 17:15 1.1 (1.1-2.2) 12/05/18 17:15 28 Units/L (11-82) 12/05/18 17:15 TSH 152.170 mcIU/mL (0.340-5.600) H 12/05/18 17:15 Free T4 < 0.25 ng/dl (0.70-2.00) L 12/05/18 21:47 0.68 mcg/dL (5.50-11.00) L 12/05/18 21:47 Free T3 2.22 pg/mL (2.50-3.90) L 12/05/18 21:47 Total T3 0.59 ng/mL (0.87-1.78) L 12/05/18 21:47 Yellow (Yellow) 12/05/18 16:59 Slightly Hazy (Clear) 12/05/18 16:59 5.5 pH Units (5.0-8.0) 12/05/18 16:59 Ur Specific [place] 1.011 (1.010-1.025) 12/05/18 16:59 Negative mg/dL (Neg-Trace) 12/05/18 16:59 Normal mg/dL (Normal) 12/05/18 16:59 Negative mg/dL (Negative) 12/05/18 16:59 Negative (Negative) 12/05/18 16:59 Negative (Negative) 12/05/18 16:59 Negative (Negative) 12/05/18 16:59 Normal mg/dL (Normal) 12/05/18 16:59 Ur Leukocyte Esterase Negative (Negative) 12/05/18 16:59 Negative (Negative) 12/05/18 16:59 Negative (Negative) 12/05/18 18:18 Salicylates < 2.5 mg/dL (15.0-30.0) L 12/05/18 17:15 Negative ng/mL (Ubasvj=098) 12/05/18 16:59 Acetaminophen < 10 mcg/mL (10-20) L 12/05/18 17:15 Ur Barbiturates Screen Negative ng/mL (Mspoah=235) 12/05/18 16:59 Ur Phencyclidine Scrn Negative ng/mL (Cutoff=25) 12/05/18 16:59 Ur Amphetamines Screen Negative ng/mL (Vbpjfp=7528) 12/05/18 16:59 U Benzodiazepines Scrn Negative ng/mL (Bcmioo=125) 12/05/18 16:59 Negative ng/mL (Cutoff= 300) 12/05/18 16:59 U Marijuana (THC) Screen Negative ng/mL (Cutoff = 50) 12/05/18 16:59 Ur Drug Screen Interp See Below 12/05/18 16:59 Ethyl Alcohol < 10 mg/dL (Less than 10) 12/05/18 17:15 - Impressions Impressions Chest X-Ray 12/05/18 16:32 IMPRESSION: No acute cardiopulmonary disease or significant interval change from prior study 04/07/2018 D/ / Alexei Luo / Alexei Luo Interpreting Provider: Alexei Luo Abdomen/Pelvis CT 12/05/18 16:56 IMPRESSION: Constipation. D/ / Alexei Hare MD / Alexei Hare MD Interpreting Provider: Alexei Hare MD Consult Discharge Plan - Plan Additional Instructions: An appointment has been requested with our family practice to establish a primary care provider. If you do not hear from us please call and make an appointment at [phone] Referrals: Brie Thapa MD [Primary Care Provider] -
[2018-12-06] MEDS ORDERED: Acetaminophen IV 1,000 MG/100 ML INFUS..BTL IVPB ONE (21:45)
[2018-12-06] MEDS: Nicotine 14 MG PATCH.TD24 TD SCH (23:04)
[2018-12-07] MEDS: *HR* LORazepam 1 MG TABLET PO SCH (08:58)
[2018-12-07] MEDS: Insulin LISPRO 300 UNITS/3 ML VIAL SQ SCH ×2 (08:59→12:43)
[2018-12-07] MEDS: Gabapentin 400 MG CAPSULE PO SCH (08:59)
[2018-12-07 11:16] VITALS: BP 129/86
--- NOTE | 2018-12-07 12:44 | Discharge Summary ---
Date of Encounter: 12/07/18 Time of Encounter: 12:00 - Discharge Diagnosis (1) Suicidal ideation Priority: Primary Status: Acute Assessment and Plan: 43 year old female with PMH of CHF, CVA, diabetes, fibromyalgia, hyperlipidemia, hypertension, renal disease, and thyroid disease. She is presenting to the ER with the chief complaint of abdominal pain. It has been going on since august and is in her epigastric area, LUQ and RUQ region. She states that nothing makes or better or worse, but does request pain meds. She has had evaluation at outside hospital and had an EGD, she states it was negative. She states that it hurts more when she moves, breaths, eats, or gets tired. She was assessed wth constipation, suicidal ideation and severe hypothyroidism with a TSH of 152 due to non compliance. She was seen by psychiatry and cleared fro discharge from a psych point of view. Her abdominal pain due to constipation resolved with symptomatic management. 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 (2) Depression Priority: Primary Status: Chronic Qualifiers: Depression Type: unspecified Qualified Code(s): F32.9 - Major depressive disorder, single episode, unspecified (3) Diabetes Priority: Primary Status: Chronic Qualifiers: Diabetes mellitus type: type 2 Diabetes mellitus long term care administrator insulin use: without long term care administrator use Diabetes mellitus complication status: without complication Qualified Code(s): E11.9 - Type 2 diabetes mellitus without complications (4) Obesity Priority: Primary Status: Chronic Qualifiers: Obesity type: due to excess calories Obesity classification: adult class 2 (BMI 35 - 39.9) Serious obesity comorbidity presence: without serious comorbidity Body mass index: BMI 37.0-37.9 Qualified Code(s): E66.09 - Other obesity due to excess calories; Z68.37 - Body mass index (BMI) 37.0-37.9, adult (5) Noncompliance with medication regimen Priority: Primary Status: Acute (6) Hypothyroidism Priority: Primary Status: Acute Qualifiers: Hypothyroidism type: acquired Qualified Code(s): E03.9 - Hypothyroidism, unspecified (7) Hypertension Priority: Primary Status: Chronic Qualifiers: Hypertension type: essential hypertension Qualified Code(s): I10 - Essential (primary) hypertension (8) Abdominal pain Priority: Primary Status: Acute Qualifiers: Abdominal location: generalized Qualified Code(s): R10.84 - Generalized abdominal pain (9) Tobacco abuse Priority: Primary Status: Chronic (10) Constipation Priority: Primary Status: Acute Qualifiers: Qualified Code(s): K59.00 - Constipation, unspecified Hospital course: Ms. Bartlett is a 43 year old female - Time Spent with Patient Total time spent providing and/or coordinating discharge services: - Discharge Medications Prescriptions: New Levothyroxine [Synthroid] 125 mcg PO DAILY@0630 #60 tablet Tramadol HCl [Ultram] 50 mg PO QID PRN 4 Days #15 tab PRN Reason: Breakthrough Pain Continued Cyclobenzaprine [Flexeril] 10 mg PO TID PRN PRN Reason: Muscle Spasm Atorvastatin Calcium [Lipitor] 80 mg PO HS Ondansetron ODT [Zofran ODT] 4 mg SL Q6HR PRN #15 tab.rapdis PRN Reason: Nausea Gabapentin [Neurontin] 800 mg PO BID #14 tablet Acetaminophen [Extra Strength Non-Aspirin] 500 mg PO Q6HR Famotidine/Ca Carb/Mag Hydrox [Pepcid Complete Tablet Chew] 1 each PO DAILY Pantoprazole Sodium [Protonix] 40 mg PO DAILY Sucralfate [Carafate] 1 gm PO Q6HR Carvedilol [Coreg] 25 mg PO BID LORazepam [Lorazepam] 2 mg PO BID Aspirin [Lo-Dose Aspirin EC] 81 mg PO DAILY Discontinued Levothyroxine [Synthroid] 50 mcg PO 0630 Home Medications: Atorvastatin Calcium [Lipitor] 80 mg PO HS 03/19/16 [History] Cyclobenzaprine [Flexeril] 10 mg PO TID PRN 03/19/16 [History] Ondansetron ODT [Zofran ODT] 4 mg SL Q6HR PRN #15 tab.rapdis 04/22/18 [Rx] Gabapentin [Neurontin] 800 mg PO BID #14 tablet 04/29/18 [Rx] Acetaminophen [Extra Strength Non-Aspirin] 500 mg PO Q6HR 12/05/18 [History] Famotidine/Ca Carb/Mag Hydrox [Pepcid Complete Tablet Chew] 1 each PO DAILY 12/05/18 [History] Pantoprazole Sodium [Protonix] 40 mg PO DAILY 12/05/18 [History] Sucralfate [Carafate] 1 gm PO Q6HR 12/05/18 [History] Aspirin [Lo-Dose Aspirin EC] 81 mg PO DAILY 12/06/18 [History] Carvedilol [Coreg] 25 mg PO BID 12/06/18 [History] LORazepam [Lorazepam] 2 mg PO BID 12/06/18 [History] Levothyroxine [Synthroid] 125 mcg PO DAILY@0630 #60 tablet 12/07/18 [Rx] Tramadol HCl [Ultram] 50 mg PO QID PRN 4 Days #15 tab 12/07/18 [Rx] Allergies/Adverse Reactions: Allergy/AdvReac Type Severity Reaction Status Date / Time Penicillins Allergy Swelling Verified 12/05/18 19:47 of Lip/Tongue/Throat lisinopril AdvReac Cough Verified 12/05/18 22:21 Date of admission: 12/05/18 20:33 Primary care physician: Brie Thapa MD Consults: 12/05/18 19:46 Consult to Psychiatry [CONS] Stat Consulting Provider: [facility] [place] Reason consult: Sitter/1:1 Other Other reason and/or additional details: SI 12/05/18 22:43 Consult to Cloth Shearer [CONS] Routine Reason for SW Consult: CONCERNS ABOUT MEDICATION COSTS, NEEDS RESOURCES FOR MEDS - Constitutional Vitals: Temp Pulse Resp BP Pulse Ox 98.0 F 82 16 129/86 96 12/07/18 11:11 12/07/18 11:11 12/07/18 11:11 12/07/18 11:11 12/07/18 11:11 Exam: Gen: Alert, awake, Oriented to time,place and person Chest: Diminished breath sounds B/L, No wheezing, No crackles, No rales Heart: S1S2+ RRR No murmurs Abd: Soft, NT, BS +, No organomegaly Ext: No edema, pulses are palpable, No calf tenderness Neuro : No acute focal neuro deficits noticed Psych: Depressed.. No suicidal ideation Skin: No rash. - Patient Status Disposition: Home, Self-Care Condition: Fair - Discharge Instructions Instructions: Levothyroxine (By mouth), Tramadol (By mouth), Constipation (DC), Acute Abdominal Pain (DC) Follow Up With: Alma Marin MD [Partnered Physician] - (Appointment has been requested. Please call office if you do not receive a call by Sunday.) Brie Thapa MD [Primary Care Provider] - Additional Instructions: An appointment has been requested with our family practice to establish a primary care provider. If you do not hear from us please call and make an appointment at [phone] Please call [phone] to find a new primary care physician.
== END 2018-12-07 15:03 | disposition home or self-care (01) ==
LOC: EMEROOARM 16:07 → 3BNU 16:07
PROVIDERS: ADMIT Internal Medicine; ATTEND Internal Medicine